=== PATIENT | male | born 1965 | race Caucasian/White ===

== ENCOUNTER 2018-10-14 07:49 | Emergency (ER) | payer OTHER ==
[~2018-10-14] VITALS: Ht 167.6 cm; Wt 74.8 kg
[~2018-10-14 07:49] MED LIST: KEFLEX500 MG PO
[2018-10-14 08:38] VITALS: BP 144/87
== END 2018-10-14 08:38 | disposition home or self-care (01) ==
LOC: M.ERS 07:49
DX: H61.22 Impacted cerumen, left ear (principal)

== ENCOUNTER 2021-03-05 07:21 | Emergency (ER) | payer MEDICARE ==
[~2021-03-05] VITALS: Ht 172.7 cm; Wt 83.9 kg
[2021-03-05 07:46] VITALS: BP 136/87
[2021-03-05] MEDS ORDERED: AUGMENTIN 875-1 EACH PO (08:50)
== END 2021-03-05 09:21 | disposition home or self-care (01) ==
LOC: M.ERS 07:21
DX: H66.92 Otitis media, unspecified, left ear (principal); H61.22 Impacted cerumen, left ear